=== PATIENT | female | born 1945 | race Caucasian/White ===

== ENCOUNTER → 2017-05-23 | Outpatient (CLI) | payer MEDICARE, OTHER ==
[~2017-05-23] MED LIST: AMLO5TAB2 PO; RIVA20TA PO
== END | disposition home or self-care (01) ==
LOC: PETCFH 11:14
PROVIDERS: ATTEND Specialist
DX: C79.51 Secondary malignant neoplasm of bone (principal); C34.31 Malignant neoplasm of lower lobe, right bronchus or lung; R59.0 Localized enlarged lymph nodes
CPT/HCPCS: 78815; A9552